=== PATIENT | male | born 1980 | race Caucasian/White ===

== ENCOUNTER 2018-06-04 15:22 | Emergency (ER) | payer OTHER ==
[2018-06-04 15:42] VITALS: TEMP 97.8; BMI 32.5
--- NOTE | 2018-06-04 15:45 | PDOC ---
History of Present Illness - General Chief Complaint: Chest Pain Stated Complaint: Chest Pain Time Seen by Provider: 06/04/18 15:45 History Source: Patient Exam Limitations: No Limitations - History of Present Illness Initial Comments: 37 yo M w no reported pmh presents to the ER BIBEMS 1 hour after he experienced squeezing substernal chest pain while he was walking which he rated as 8/10 in intensity was associated with mild diaphoresis as well as radiation to the left shoulder. The patient also experienced SOB and difficulty breathing while his chest pain was happening. He is no longer experiencing the chest pain or SOB here in the ED. The pain was not associated with any nausea, vomiting, or radiation to the back. He did not take any medications for the pain. He reports a significant family medical history for heart attacks and strokes. He denies any fevers, chills, infections, back pain, headache, nausea, vomiting , blurry vision, neck pain, abdominal pain, dysuria, frequency, urgency, leg pain, weakness, numbness, or tingling. PCP: None Social Hx: Smokes 1/3 a PPD, drinks recreationally, denies other substance usage. Allergies: NKA, NKDA PSH: None reported. Past History - Past Medical History Allergies/Adverse Reactions: Allergies Allergy/AdvReac Type Severity Reaction Status Date / Time No Known Allergies Allergy Verified 06/04/18 15:42 COPD: No - Suicide/Smoking/Psychosocial Hx Smoking History: Unknown if ever smoked Have you smoked in the past 12 months: No Information on smoking cessation initiated: No Hx Alcohol Use: No Drug/Substance Use Hx: No Review of Systems - Review of Systems Able to Perform ROS?: Yes Comments:: CONSTITUTIONAL: Absent: fever, no chills, no fatigue EYES: Absent: visual changes ENT: Absent: ear pain, no sore throat CARDIOVASCULAR: Present: Chest pain, diaphoresis Absent: no palpitations RESPIRATORY: Present: SOB Absent: cough GI: Absent: abdominal pain, no nausea, no vomiting, no constipation, no diarrhea GENITOURINARY: Absent: dysuria, no frequency, no hematuria MUSKULOSKELETAL: Absent: back pain, no arthralgia, no myalgia SKIN: Absent: rash NEURO: Absent: headache *Physical Exam - Vital Signs Last Vital Signs Temp Pulse Resp BP Pulse Ox 97.8 F 98 H 16 148/95 100 06/04/18 15:22 06/04/18 15:22 06/04/18 15:22 06/04/18 15:22 06/04/18 15:22 - Physical Exam Comments: GENERAL: Well-appearing, well-nourished. No apparent distress. HEENT: Normocephalic, atraumatic. PERRL, EOM intact. CARDIOVASCULAR: Normal S1, S2. Tachycardic rate and regular rhythm. PULMONARY: Clear to auscultation bilaterally. ABDOMEN: Soft, non-distended, non-tender. EXTREMITIES: Normal ROM in all four extremities. No gross deformities. SKIN: Warm, dry. No rash NEUROLOGICAL: No focal neurological deficits. Moderate Sedation - Procedure Monitoring Vital Signs: Procedure Monitoring Vital Signs Temperature 97.8 F 06/04/18 15:22 Pulse Rate 98 H 06/04/18 15:22 Respiratory Rate 16 06/04/18 15:22 Blood Pressure 148/95 06/04/18 15:22 O2 Sat by Pulse Oximetry (%) 100 06/04/18 15:22 Heart Score/ECG Review - History History: Highly suspicious - Electrocardiogram EKG: Normal - Age Age: </= 45 - Risk Factors Risk Factors Heart Score: Yes Smoking History, Yes Positive family hx of cardiac disease Based on the list above the patient has:: 1-2 risk factors - Troponin Troponin: </= normal limit - Score Heart Score - Total: 3 - ECG Intrepretation Rhythm: Regular Rhythm - [place]: Normal - ST and T Non Specific ST-T Wave changes: No - ECG Impressions Normal ECG: Yes ED Treatment Course - LABORATORY CBC & Chemistry Diagram: 06/04/18 16:18 06/04/18 16:18 Medical Decision Making - Medical Decision Making 37 yo M w no reported pmh presents to the ER BIBEMS 1 hour after he experienced squeezing substernal chest pain while he was walking which he rated as 8/10 in intensity was associated with mild diaphoresis as well as radiation to the left shoulder. The patient also experienced SOB and difficulty breathing while his chest pain was happening. He is no longer experiencing the chest pain or SOB here in the ED. The pain was not associated with any nausea, vomiting, or radiation to the back. He did not take any medications for the pain. He reports a significant family medical history for heart attacks and strokes. DDx PHANT: ACS, PNA, pneumothorax, MSK pain, costochondritis, myocarditis Plan: Labs, CXR, EKG, cardiac monitoring, re-assess. -EKG normal sinus. Initial Trop negative 3 hour trop negative EKG after 3 hours and walking around ED also normal sinus Patient is now well appearing in the ER but the history of his chest pain is very suspicious. He also has a smoking history and a positive family history. Heart score is 3. Consulted cardiology: Dr. Chadwick who agrees that given patient has been asymptomatic throughout his course in the ED he can be safely discharged with cardio follow up if he has a 6 hour troponin which is negative and if a [address] e[address] is negative[address] Dr. Chadwick - [phone]: Needs stress test and further follow up. 6 hour trop negative 6 hour EKG normal sinus ad not changed from prior. Will DC patient to cota tomorrow. *DC/Admit/Observation/Transfer Diagnosis at time of Disposition: Chest pain - Discharge Dispostion Disposition: HOME Condition at time of disposition: Improved Decision to Admit order: No - Referrals Referrals: Ru Chadwick MD [Staff Physician] - [facility] [place] [facility] [place] [Provider Group] - Patient Instructions Printed Discharge Instructions: DI for Chest Pain Additional Instructions: You came into the ER with chest pain. We did 3 electrocardiograms over the course of 6 hours, and three sets of cardiac enzymes which all came back negative. It is extremely important for you to be evaluated by a cota tomorrow. Dr. Ru Chadwick is a cota for our hospital who can see you tomorrow. His number is [phone]. Please call his office first thing in the morning to schedule an appointment. Come back to the ER immediately if you experience any further chest pain, nausea , vomiting, shortness of breath, sweating, or any other new or worsening concerns. Thank you for coming to the [facility] ER. We hope you feel better soon! Print Language: BELARUSIAN - Post Discharge Activity
--- NOTE | 2018-06-04 15:57 | PDOC ---
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 Awaiting call back. <Kajal Tamez - Last Filed: 06/04/18 19:49> - HPI HPI: 06/04/18 17:55 37y M with no pmh who presents to the emergency department for evaluation of chest pain since today. Patient reports substernal chest pain ranked 8/10 in severity, described as squeezing associated with tingling in his L arm, lasting for about 45 minutes while he was talking to coworkers at work today. He endorses associated diaphoresis, palpitations, lightheadedness while having these symptom. The symptoms have since resolved and he is asymptomatic. Pt states he plans to follow up with a new PCP in [place] on . He endorses cigarette use and family hx with HI and CVAs. He denies IVORY, n/v, jaw, abdominal, or leg pain. Denies numbness/tingling/waekness in extremities, back pain, neck pain. - Physicial Exam PE: GENERAL: The patient is awake, alert, and fully oriented, Nontoxic - in no acute distress. HEAD: Normocephalic, atraumatic. EYES: extraocular movements intact, sclera anicteric, conjunctiva clear. ENT: Normal voice, Moist mucous membranes. NECK: Normal range of motion, supple LUNGS: Breath sounds equal, clear to auscultation bilaterally. No wheezes, no rhonchi, no rales. HEART: Regular rate and rhythm, without murmur, rub or gallop. ABDOMEN: Soft, nontender, No guarding, no rebound.No CVA tenderness EXTREMITIES: Normal range of motion, no edema. No cyanosis. No erythema, or tenderness. NEUROLOGICAL: No facial assymetry, Normal speech, PSYCH: Normal mood, normal affect. SKIN: Warm, Dry, normal turgor, - Medical Decision Making Documentation prepared by Burt Branham, acting as medical coder for Atif Felder MD. <Burt Branham - Last Filed: 06/04/18 21:01> - Resident Resident Name: [place] - ED Attending Attestation I have performed the following: I have examined & evaluated the patient, The case was reviewed & discussed with the resident, I agree w/resident's findings & plan, Exceptions are as noted - Medical Decision Making 06/04/18 16:37 37y M no pmhx presents with substernal squeezing like chest pain that is 8/10 that radiates to the left shoulder with diaphorsis with the cp lasting approx 45 minutes during a discussion with the patient. The sypmtoms of the patinet has since resolved and is asypmtmatic. no prior history of this pain. no discomfort in the chest, sob, ivory when ambulating/working/going up stairs. ddenies n/v, radaition to back, abd pain, back pain, numbnes/tingling/weakness, f/c +smoker +famly hx of CAD concern for posible acs however few risk factors beside beign a smoker HEART score 3 will obtain trops x 2 and repeat ekg asa given <Atif Felder - Last Filed: 06/04/18 21:05> Heart Score/ECG Review - History History: Highly suspicious - Electrocardiogram EKG: Normal - Age Age: </= 45 - Risk Factors Risk Factors Heart Score: Yes Smoking History, Yes Positive family hx of cardiac disease Based on the list above the patient has:: 1-2 risk factors - Troponin Troponin: </= normal limit - Score Heart Score - Total: 3 - ECG Impressions Comment:: 06/04/18 17:52 Twelve-lead EKG was performed and reviewed by me. There is normal sinus rhythm with a normal rate. Rate of 86 The axis is normal. The intervals are normal. There is normal R wave progression There are no ST or T wave abnormalities. Impression: Normal twelve-lead EKG <Atif Felder - Last Filed: 06/04/18 21:05>
[2018-06-04] MEDS ORDERED: ASPIRIN 81 MG CHEWABLE TABLETS PO ONE (15:59)
[2018-06-04] MEDS ORDERED: ASPIRIN 81 MG CHEWABLE TABLETS ONE (16:16)
[2018-06-04 16:30] LABS: BASO % 0.3 % (0-2.0); EOS % 0.2 % (0-4.5); HEMATOCRIT 45.8 % (35.4-49); HEMOGLOBIN 15.8 GM/dL (11.7-16.9); MCH 30.7 pg (25.7-33.7); MCHC 34.5 g/dl (32.0-35.9); MONO % 7.4 % (3.8-10.2); NEUT % 78.1 % (42.8-82.8); PLATELET COUNT 240 K/MM3 (134-434); RBC 5.14 M/mm3 (4.00-5.60); RDW 13.1 % (11.9-15.9); WHITE BLOOD COUNT 13.1 K/mm3 (4.0-10.0)
[2018-06-04 16:57] LABS: ALBUMIN 4.2 g/dl (3.4-5.0); ALK PHOS 97 U/L (45-117); ANION GAP 5 MMOL/L (8-16); BILIRUBIN,TOTAL 0.5 mg/dL (0.2-1); BLOOD UREA NITROGEN 11 mg/dL (7-18); CALCIUM 8.8 mg/dL (8.5-10.1); CHLORIDE 106 mmol/L (98-107); CO2 29 mmol/L (21-32); CREATININE 0.9 mg/dL (0.55-1.3); GLUCOSE,RANDOM 82 mg/dL (74-106); MAGNESIUM 2.4 mg/dL (1.8-2.4); POTASSIUM 3.8 mmol/L (3.5-5.1); SGOT/AST 14 U/L (15-37); SGPT/ALT 34 U/L (13-61); SODIUM 141 mmol/L (136-145); TOT PROT 7.5 g/dl (6.4-8.2)
[2018-06-04 18:50] LABS: INR 1.22 (0.83-1.09); PROTHROMBIN TIME (PATIENT) 14.4 SEC (9.7-13.0)
[2018-06-04 19:43] VITALS: BP 123/64; PULSE 76
--- NOTE | 2018-06-05 12:16 | EKG ---
Test Reason : Blood Pressure : / mmHG Vent. Rate : 064 BPM Atrial Rate : 064 BPM P-R Int : 162 ms QRS Dur : 094 ms QT Int : 400 ms P-R-T Axes : 056 050 048 degrees QTc Int : 412 ms NORMAL SINUS RHYTHM WITH SINUS ARRHYTHMIA NORMAL ECG Confirmed by MD MC, JOSIANE ([id number]) on 06/05/2018 12:16:23 PM Referred By: Confirmed By:JOSIANE BENTLEY MD
--- NOTE | 2018-06-05 12:17 | EKG ---
Test Reason : Blood Pressure : / mmHG Vent. Rate : 086 BPM Atrial Rate : 086 BPM P-R Int : 176 ms QRS Dur : 100 ms QT Int : 368 ms P-R-T Axes : 058 065 043 degrees QTc Int : 440 ms POOR DATA QUALITY, INTERPRETATION MAY BE ADVERSELY AFFECTED NORMAL SINUS RHYTHM NORMAL ECG Confirmed by MD MC, JOSIANE (2013) on 06/05/2018 12:16:56 PM Referred By: Confirmed By:JOSIANE BENTLEY MD
--- NOTE | 2018-06-05 12:17 | EKG ---
Test Reason : Blood Pressure : / mmHG Vent. Rate : 062 BPM Atrial Rate : 062 BPM P-R Int : 162 ms QRS Dur : 094 ms QT Int : 410 ms P-R-T Axes : 059 063 057 degrees QTc Int : 416 ms NORMAL SINUS RHYTHM WITH SINUS ARRHYTHMIA NORMAL ECG Confirmed by MD MC, JOSIANE (2013) on 06/05/2018 12:16:31 PM Referred By: Confirmed By:JOSIANE BENTLEY MD
== END 2018-06-04 22:01 | disposition home or self-care (01) ==
LOC: JER 15:22
DX: R07.9 Chest pain, unspecified (principal); F17.210 Nicotine dependence, cigarettes, uncomplicated; Z82.49 Family history of ischemic heart disease and other diseases of the circulatory system
CPT/HCPCS: 36415; 71046-TC-FY; 80053; 82550; 82553; 83735; 84484; 85025; 85610; 93005; 93010; 99285-25